=== PATIENT | male | born 1970 | race African-American/Black ===

== ENCOUNTER → 2020-09-14 | Outpatient (CLI) | payer BC ==
[~2020-09-14] MED LIST: ASPIRIN325 PO; COZAAR 50 MG TA50 M2 PO; FLUOCINONIDE60 GM TP; NORVASC5 MG PO; SINGULAIR 10 MG10 M1 PO; XOPENEX HF1 UDINHALE INH
== END ==
LOC: SJCVCIMAG 09:12
PROVIDERS: ATTEND Internal Medicine
DX: I10 Essential (primary) hypertension (principal)